=== PATIENT | female | born 1980 | race Two or more races ===

== ENCOUNTER 2019-04-16 12:17 | Emergency (ER) | payer BC, OTHER ==
[~2019-04-16] VITALS: Ht 162.6 cm; Wt 70.3 kg
[2019-04-16 16:26] VITALS: BP 142/90
== END 2019-04-16 17:29 | disposition home or self-care (01) ==
LOC: ER 12:17
DX: M79.602 Pain in left arm (principal)
CPT/HCPCS: 73060